=== PATIENT | male | born 1950 ===

== ENCOUNTER 2024-11-12 15:20 | Inpatient (IN) ==
--- NOTE | 2024-11-12 15:52 | Emergency Department Note ---
HPI - SOB/Dyspnea General Chief Complaint: SOB -Shortness of Breath Stated Complaint: SOB Source: patient and family Mode of arrival: walk-in Limitations: no limitations History of Present Illness HPI Narrative: This is a 74 year old male patient that presents to the ER with c/o cough, congestion, fever, chills, SOB and chest tightness. Patient denies any abdominal pain, back pain, numbness, tingling, weakness or N/V MD elicited complaint: Reports shortness of breath, cough and chest pain Pertinent past history: Reports COPD Severity: mild Exacerbating factors: Reports nothing Relieving factors: Reports nothing Known history of: Reports COPD Associated symptoms: Reports chest pain, fever, cough and wheezing Treatment prior to arrival: Reports oxygen Related Data Home oxygen amount: 2 liters Allergies Allergy/AdvReac Type Severity Reaction Status Date / Time No Known Drug Allergies Allergy Verified 11/12/24 15:34 Review of Systems Status of ROS 10 or more systems reviewed and unremark able except as noted in history and below Constitutional Reports: fever and chills; Denies: change in weight, fatigue or malaise Eyes Denies: change in vision, blurry vision, blind spots, light sensitivity or eye discomfort Ears, nose, mouth, and throat Denies: throat pain, neck pain, throat swelling, difficulty swallowing, hoarseness or mouth pain Cardiovascular Reports: chest pain, shortness of breath with exertion and shortness of breath when lying down; Denies: palpitations, edema, swelling of feet/ankles or lightheadedness Respiratory Reports: shortness of breath, cough and wheezing; Denies: stridor, pain on inspiration or change in phlegm color Gastrointestinal Denies: abdominal pain, nausea, vomiting, coffee grounds in vomit, heartburn, diarrhea or constipation Genitourinary Denies: painful urination, urinary frequency, urinary urgency, bl ood in urine or genital pain Musculoskeletal Denies: back pain, neck pain, extremity pain, extremity swelling or joint pain Integumentary/Breast Denies: rash, itching, redness, skin pain, skin tenderness or skin swelling Neurological Denies: headache, numbness in extremities, weakness in extremities, lack of coordination or dizziness Psychiatric Denies: anxiety, mood swings, panic attacks, change in sleep pattern or hopelessness Endocrine Denies: excessive urination, excessive thirst, fatigue, cold intolerance, excessive sweating or flushing Hematologic/Lymphatic Denies: easy bruising or easy bleeding Allergic/Immunologic Denies: hives, throat swelling, tongue swelling, facial swelling or wheezing PFSH PFSH Medical History Chronic neck and back pain CHF (congestive heart failure) A-fib COPD (chronic obstructive pulmonary disease) HTN (hypertension) Social History Smoking status: current every day smoker What is your current living situation: I presently have a place to live Feel stressed/tense/nervous/anxious/difficulty sleeping: to some extent Life stressor details: health Due to disability, difficulty making decisions: No Exam Constitutional: normal general appearance and no apparent distress Vital Signs - 24 hr 11/12/24 15:31 11/12/24 15:59 11/12/24 16:12 Temperature 98.1 F Pulse Rate 82 67 Respiratory Rate 25 H 21 Blood Pressure 127/67 Pulse Oximetry 89 L 96 95 Oxygen Delivery Me thod Nasal Cannula Oxygen Flow Rate 2 HENMT: normocephalic, head/scalp atraumatic, hearing grossly normal bilaterally, external ears normal, nasal mucous membranes normal, external nose normal, oral mucous membranes normal and oropharynx normal Eyes: PERRL, EOMs intact bilaterally, conjunctivae normal and no scleral icterus Neck/C-Spine: visual inspection normal and trachea midline Lymph: no lymphadenopathy noted Chest: inspection of chest normal Respiratory: breath sounds equal bilaterally, normal respiratory effort, auscultation abnormal (diminished breath sound), wheezing noted (scattered wheezes), no rales, no retractions, no use of accessory muscles and chest percussion normal Cardiovascular: normal heart rate noted, rhythm abnormal (irregular), no gallop, no rub, no murmur, no JVD, no clicks, peripheral pulses 2+ throughout, no bruits noted and no additional abnormal heart sounds Gastrointestinal: abdomen normal to inspection, abdomen soft to palpation, nontender to palpation, nontender to percussion, nondistended, normoactive bowel sounds, no hepatosplenomegaly, no masses, no pulsatile mass, no ascites and no hernia Genitourinary: no CVA tenderness Back/Pelvis: spine normal to inspection Extremities: normal to inspection, normal to palpation, no tenderness, full ROM, no joint enlargement and no deformity Neurology: no movement abnormality noted, no focal motor deficit noted, no sensory deficits noted, speech normal, coordination normal, no pronator drift noted, no fasciculations noted and GCS normal Psychiatry: mental status grossly normal, oriented x3, thought process normal, cooperative and affect normal Skin: skin color normal Course Course Hospital Course: 1657: due to patient medical hx, low O2 sats upon arrival to ER, will admit to the hospital for further evaluation and treatment. VSS, no s/s of acute distress noted Vital Signs Vital signs: Vital Signs Temperature 98.1 F 11/12/24 15:31 Pulse Rate 82 11/12/24 15:31 Respiratory Rate 25 H 11/12/24 15:31 Blood Pressure 127/67 11/12/24 15:31 Pulse Oximetry 89 L 11/12/24 15:31 Oxygen Delivery Method Nasal Cannula 11/12/24 15:31 Oxygen Flow Rate 2 11/12/24 15:31 Temperature 98.1 F 11/12/24 15:31 Pulse Rate 67 11/12/24 15:59 Respiratory Rate 21 11/12/24 15:59 Blood Pressure 127/67 11/12/24 15:31 Pulse Oximetry 95 11/12/24 16:12 Oxygen Delivery Method Nasal Cannula 11/12/24 15:31 Oxygen Flow Rate 2 11/12/24 15:31 MDM - SOB/Dyspnea Differential Diagnosis Differential diagnosis: Likely acute exacerbation of chronic obstructive airways disease Medical Records Attestation: I reviewed the patient's medical records. Lab Data Attestation: I reviewed the patient's lab results. Labs: Lab Results 11/12/24 Range/Units 15:48 WBC 11.7 H (3.7-9.6) K/uL RBC 4.4 (4.40-5.80) M/uL Hgb 13.9 L (14.0-17.4) gm/dL Hct 41.0 L (41.3-50.1) % MCV 94.1 (81.9-96.5) fl MCH 31.9 (27.6-33.7) pg MCHC 34.0 (33.0-35.7) g/dl RDW 14.9 H (11.0-14.8) % Plt Count 103 L (142-355) K/uL MPV 7.0 (6.0-10.4) fl Gran % 41.7 L (49.1-73.1) % Lymph % (Auto) 52.4 H (17.6-39.05) % [place] % (Auto) 4.9 (4.5-10.7) % Eos % (Auto) 0.8 (0.0-4.0) % Baso % (Auto) 0.2 (0.0-1.3) Lymph # (Auto) 6.1 H (0.8-2.9) [place] # (Auto) 0.6 (0.2-0.8) Eos # (Auto) 0.1 (0.0-0.3) Baso # (Auto) 0.0 (0.0-0.1) Absolute Gran (auto) 4.9 (2.0-6.2) Sodium 138 (136-145) mmol/L Potassium 4.2 (3.6-5.2) mmol/L Chloride 102.0 (98-107) mmol/L Carbon Dioxide 31 (21-32) mmol/L Anion Gap 5.0 (4-14) mEq/L BUN 13 (7-18) mg/dL Creatinine 1.2 (0.6-1.3) mg/dL Estimated GFR 64.3 (>59.9) Glucose 91 (70-110) mg/dL Lactic Acid 0.4 (0.27-1.43) mmol/L Calcium 8.4 L (8.5-10.1) mg/dL Total Bilirubin 1.07 H (0.0-1.0) mg/dL AST 12 L (15-37) U/L ALT <6 L (30-65) U/L Alkaline Phosphatase 60 (50-136) U/L Troponin I High Sens 6.40 (4.0-60.4) ng/L B-Natriuretic Peptide 74.1 (0-100) pg/mL Total Protein 6.3 L (6.4-8.2) g/dL Albumin 3.7 (3.4-5.0) g/dL COVID-19 (ALISSA) Not detected (Not Detectd) Influenza Type A Ag Negative (Negative) Influenza Type B Ag Negative (Negative) Imaging Data Imaging ordered: Chest x-ray Attestation: I have reviewed the pertinent imaging results. ECG Data Attestation: I have reviewed the pertinent ECG results. Discharge Plan Discharge Patient Disposition: Admitted As Observation Condition: Stable Clinical Impression: Congestive heart failure, Chest pain, COPD exacerbation, Hypoxia Time of Disposition: 17:01
[2024-11-12] MEDS: METHYLPREDNISOLONE SOD SUCC/PF 125 MG/2 ML VIAL IVP ONE (15:53)
[2024-11-12] MEDS ORDERED: IPRATROPIUM BROMIDE 0.2 MG/ML SOLUTION INH ONE (16:00)
[2024-11-12 16:03] LABS: Eosinophils#(Absolute)Auto 0.1 (0.0-0.3); Monocytes #(Absolute)- Auto 0.6 (0.2-0.8)
[2024-11-12] MEDS: IPRATROPIUM/ALBUTEROL SULFATE 3 ML AMPUL.NEB INH ONE (16:12)
[2024-11-12] MEDS: BUDESONIDE 0.5 MG/2 ML AMPUL.NEB INH ONE (16:12)
[2024-11-12 16:13] LABS: Basophils%(Percent) Auto 0.2 (0.0-1.3); Carbon Dioxide 31 mmol/L (21-32); Eosinophils%(Percent) Auto 0.8 % (0.0-4.0); Glucose 91 mg/dL (70-110); Granulocytes % - Auto 41.7 % (49.1-73.1); Granulocytes#(Absolute)- Auto 4.9 (2.0-6.2); Mean Corpuscular Volume 94.1 fl (81.9-96.5); Monocytes %(Percent)- Auto 4.9 % (4.5-10.7); Platelet Count 103 K/uL (142-355); Potassium 4.2 mmol/L (3.6-5.2); Sodium 138 mmol/L (136-145); White Blood Count 11.7 K/uL (3.7-9.6)
[2024-11-12] MEDS ORDERED: FUROSEMIDE 20 MG/2 ML VIAL ONE (18:17)
[2024-11-12] MEDS: FUROSEMIDE 20 MG/2 ML VIAL IV ONE (18:19)
[2024-11-13] MEDS ORDERED: MAGNESIUM, ALUMINUM HYDROXIDE 30 ML ORAL.SUSP PO PRN (02:05)
[2024-11-13] MEDS ORDERED: DOCUSATE SODIUM 100 MG CAPSULE PO PRN (02:05)
[2024-11-13 03:10] LABS: Basophils%(Percent) Auto 0.4 (0.0-1.3); Granulocytes % - Auto 27.6 % (49.1-73.1); Granulocytes#(Absolute)- Auto 4.8 (2.0-6.2); Hematocrit 40.5 % (41.3-50.1); Mean Corpuscular Volume 92.6 fl (81.9-96.5); Monocytes #(Absolute)- Auto 0.2 (0.2-0.8); Monocytes %(Percent)- Auto 1.2 % (4.5-10.7); Platelet Count 110 K/uL (142-355); White Blood Count 17.3 K/uL (3.7-9.6)
[2024-11-13 03:15] LABS: Potassium 4.9 mmol/L (3.6-5.2)
[2024-11-13] MEDS: BUDESONIDE 0.5 MG/2 ML AMPUL.NEB INH SCH (04:50)
[2024-11-13] MEDS: IPRATROPIUM/ALBUTEROL SULFATE 3 ML AMPUL.NEB INH SCH (04:50)
[2024-11-13] MEDS: ACETAMINOPHEN 500 MG TABLET PO PRN (10:17)
[2024-11-13] MEDS: FUROSEMIDE 20 MG/2 ML VIAL IV SCH (10:17)
[2024-11-13] MEDS: PANTOPRAZOLE SODIUM 40 MG TABLET.DR PO SCH (10:17)
[2024-11-13] MEDS: levoFLOXacin 500 MG TABLET PO SCH (10:17)
--- NOTE | 2024-11-13 12:14 | History & Physical Report ---
H&P: HPI History of Present Illness Chief complaint: COPD EXACERBATION,CHF EXACERBATION,CHEST PAIN,HYPO Narrative: This is a 74-year-old male patient that presents to the ER with c/o cough, congestion, fever, chills, SOB and chest tightness. Patient denies any abdominal pain, back pain, numbness, tingling, weakness or N/V. Admitted patient to med/surg for further observation and treatment. Review of Systems Status of ROS 10 or more systems reviewed and unremark able except as noted in history and below Constitutional Reports: fever and chills; Denies: change in weight, fatigue or malaise Eyes Denies: change in vision, blurry vision, blind spots, light sensitivity or eye discomfort Ears, nose, mouth, and throat Denies: throat pain, neck pain, throat swelling, difficulty swallowing, hoarseness or mouth pain Cardiovascular Reports: chest pain, shortness of breath with exertion and shortness of breath when lying down; Denies: palpitations, edema, swelling of feet/ankles or lightheadedness Respiratory Reports: shortness of breath and cough; Denies: wheezing, stridor, pain on inspiration or change in phlegm color Gastrointestinal Denies: abdominal pain, nausea, vomiting, coffee grounds in vomit, heartburn, diarrhea, constipation or difficulty swallowing Genitourinary Denies: painful urination, urinary frequency, urinary urgency, blood in urine or genital pain Musculoskeletal Denies: back pain, neck pain, extremity pain, extremity swelling or joint pain Integumentary/Breast Denies: rash, itching, redness, skin pain, skin tenderness or skin swelling Neurological Denies: headache, numbness in extremities, weakness in extremities, lack of coordination or dizziness Psychiatric Denies: anxiety, mood swings, panic attacks, change in sleep pattern or hopelessness Endocrine Denies: excessive urination, excessive thirst, fatigue, cold intolerance, excessive sweating or flushing Hematologic/Lymphatic Denies: easy bruising or easy bleeding Allergic/Immunologic Denies: hives, throat swelling, tongue swelling, facial swelling or wheezing PFSH PFSH Medical History Chronic neck and back pain CHF (congestive heart failure) A-fib COPD (chronic obstructive pulmonary disease) HTN (hypertension) Social History Smoking status: current every day smoker What is your current living situation: I presently have a place to live Problems where you live: no known problems Highest level of school completed/degree received: decline to answer Feel stressed/tense/nervous/anxious/difficulty sleeping: to some extent Life stressor details: health Due to disability, difficulty making decisions: No Meds Home Medications and Allergies Home Medications Medication Instructions Recorded Confirmed Type aspirin 325 mg tablet (Ralf 325 mg PO DAILY 11/13/24 11/13/24 History Aspirin) carbidopa 25 mg-levodopa 100 mg 1 tab PO TID PRN muscle spasm 11/13/24 11/13/24 History tablet digoxin 250 mcg (0.25 mg) tablet 0.25 mg PO DAILY 11/13/24 11/13/24 History duloxetine 30 mg capsule,delayed 30 mg PO BID 11/13/24 11/13/24 History release furosemide 40 mg tablet 40 mg PO DAILY 11/13/24 11/13/24 History hydrocodone 5 mg-acetaminophen 325 1 tab PO Q8H PRN pain 11/13/24 11/13/24 History mg tablet metoprolol tartrate 50 mg tablet 25 mg PO BID 11/13/24 11/13/24 History potassium chloride 20 mEq 20 meq PO DAILY 11/13/24 11/13/24 History tablet,extended release Allergies Allergy/AdvReac Type Severity Reaction Status Date / Time No Known Drug Allergies Allergy Verified 11/12/24 15:34 Exam Exam: Patient lying on left side resting, family member at bedside. Constitutional: abnormal general appearance (disheveled) and (lethargic), distress noted (mild) and (respiratory), abnormal body habitus (overweight), no limitations and alert Vital Signs - 24 hr 11/12/24 15:31 11/12/24 15:59 11/12/24 16:12 Temperature 98.1 F Pulse Rate 82 67 Pulse Rate [Brachi al] Respiratory Rate 25 H 21 Blood Pressure 127/67 Blood Pressure [Le ft Arm] Pulse Oximetry 89 L 96 95 Oxygen Delivery Me thod Nasal Cannula Oxygen Flow Rate 2 11/12/24 19:00 11/12/24 19:30 11/12/24 20:00 Temperature 98.1 F 98.1 F Pulse Rate 90 82 79 Pulse Rate [Brachi al] Respiratory Rate 21 20 21 Blood Pressure 177/73 131/76 141/69 Blood Pressure [Le ft Arm] Pulse Oximetry 95 95 95 Oxygen Delivery Me thod Nasal Cannula Nasal Cannula Nasal Cannula Oxygen Flow Rate 2 2 2 11/12/24 20:43 11/12/24 20:50 11/12/24 20:55 Temperature 97.8 F Pulse Rate 81 81 Pulse Rate [Brachi al] Respiratory Rate 22 19 Blood Pressure 140/73 108/66 Blood Pressure [Le ft Arm] Pulse Oximetry 95 93 L Oxygen Delivery Me thod Nasal Cannula Room Air Oxygen Flow Rate 2 11/12/24 21:30 11/12/24 21:41 11/13/24 00:18 Temperature 97.8 F 97.7 F Pulse Rate Pulse Rate [Brachi al] 80 69 Respiratory Rate 19 17 Blood Pressure 108/66 Blood Pressure [Le ft Arm] 108/66 101/62 Pulse Oximetry 93 L 95 Oxygen Delivery Me thod Room Air Nasal Cannula Oxygen Flow Rate 2 11/13/24 04:26 11/13/24 04:49 11/13/24 07:30 Temperature 97.4 F L Pulse Rate Pulse Rate [Brachi al] 67 Respiratory Rate 17 Blood Pressure Blood Pressure [Le ft Arm] 127/63 Pulse Oximetry 96 95 91 L Oxygen Delivery Me thod Room Air Oxygen Flow Rate 11/13/24 09:16 11/13/24 10:17 11/13/24 11:14 Temperature 97.8 F Pulse Rate Pulse Rate [Brachi al] 80 Respiratory Rate 21 Blood Pressure 124/58 Blood Pressure [Le ft Arm] 124/58 Pulse Oximetry 91 L 91 L Oxygen Delivery Me thod Nasal Cannula Oxygen Flow Rate 2 HENMT: normocephalic, head/scalp atraumatic, hearing grossly normal bilaterally, external ears normal, nasal mucous membranes normal, external nose normal, oral mucous membranes normal and oropharynx normal Eyes: PERRL, EOMs intact bilaterally, conjunctivae normal, no scleral icterus, papilledema noted and periorbital findings normal Neck/C-Spine: trachea midline, cervical spine nontender, abnormal cervical ROM noted, supple, no meningeal signs, thyroid normal and no carotid bruits Lymph: no lymphadenopathy noted and no lymphedema noted Chest: inspection of chest normal and palpation of chest normal Respiratory: breath sounds equal bilaterally, normal respiratory effort, auscultation abnormal (diminished breath sound), wheezing noted (scattered wheezes), no rales, no retractions, no use of accessory muscles and chest percussion normal Cardiovascular: normal heart rate noted, rhythm abnormal (irregular), no gallop, no rub, no murmur, no JVD, no clicks, peripheral pulses 2+ throughout, no bruits noted and no additional abnormal heart sounds Gastrointestinal: abdomen normal to inspection, abdomen soft to palpation, nontender to palpation, nontender to percussion, nondistended, normoactive bowel sounds, no hepatosplenomegaly, no masses, no pulsatile mass, no ascites and no hernia Genitourinary: no CVA tenderness and bladder normal to palpation Back/Pelvis: spine abnormal to inspection (increased thoracic kyphosis), no thoracic spine tenderness, no lumbar spine tenderness, thoracic spine ROM abnormal, no paraspinal muscle tenderness noted and straight leg raise negative bilaterally Extremities: normal to inspection, normal to palpation, no tenderness, full ROM, no joint enlargement and no deformity 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: 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, no movement abnormality noted, no focal motor deficit noted, sensory deficit noted, deep tendon reflexes 2+ bilaterally, gait abnormality noted (antalgic), speech normal, coordination normal, no pronator drift noted, no fasciculations noted and GCS normal Psychiatry: mental status grossly normal, oriented x3, thought process normal, cooperative, affect abnormality noted (flat), psychomotor abnormality noted (agitated) and memory normal Feel stressed/tense/nervous/anxious/difficulty sleeping: decline to answer Skin: skin color normal, no rash, no lesions, ecchymosis noted, no wounds, no lacerations, skin turgor abnormal, no jaundice, no petechiae, no mottling, nails abnormality noted and no alopecia Assessment and Plan Assessment and Plan (1) COPD exacerbation: Code(s): J44.1 - Chronic obstructive pulmonary disease with (acute) exacerbation (2) Chest pain: Qualifiers: Chest pain type: unspecified Qualified Code(s): R07.9 - Chest pain, unspecified Code(s): R07.9 - Chest pain, unspecified (3) CHF (congestive heart failure): Qualifiers: Heart failure chronicity: unspecified Heart failure type: unspecified Qualified Code(s): I50.9 - Heart failure, unspecified Code(s): I50.9 - Heart failure, unspecified (4) SOB (shortness of breath): Code(s): R06.02 - Shortness of breath (5) Leukocytosis: Qualifiers: Leukocytosis type: unspecified Qualified Code(s): D72.829 - Elevated white blood cell count, unspecified Code(s): D72.829 - Elevated white blood cell count, unspecified (6) Elevated d-dimer: Code(s): R79.89 - Other specified abnormal findings of blood chemistry (7) Hyperglycemia: Code(s): R73.9 - Hyperglycemia, unspecified (8) Hypoproteinemia: Code(s): E77.8 - Other disorders of glycoprotein metabolism Plan Budesonide 1 mg INH BID Furosemide 20 mg IV DAILY Pantoprazole Sodium 40 mg PO DAILY Albuterol Sulfate 3 ml INH Q4H Levofloxacin 750 mg PO Q24H Aspirin 325 mg PO DAILY Digoxin 250 mcg PO DAILY Duloxetine Hcl 30 mg PO BID Metoprolol Tartrate 25 mg PO BID Potassium Chloride 20 meq PO DAILY Acetaminophen 500 mg PO Q6H PRN Docusate Sodium 100 mg PO DAILY PRN Magnesium Hydroxide 30 ml PO DAILY PRN Carbidopa/Levodopa 25/100 mg (1) each PO TID PRN Hydrocodone Bitart/Acetaminophen 5/325 mg (1) each PO Q8H PRN Results Labs Labs: CBC 11/12/24 11/13/24 Range/Units 15:48 03:00 WBC 11.7 H 17.3 H (3.7-9.6) K/uL RBC 4.4 4.4 (4.40-5.80) M/uL Hgb 13.9 L 14.0 (14.0-17.4) gm/dL Hct 41.0 L 40.5 L (41.3-50.1) % Plt Count 103 L 110 L (142-355) K/uL Gran % 41.7 L 27.6 L (49.1-73.1) % Lymph % (Auto) 52.4 H 70.8 H (17.6-39.05) % [place] % (Auto) 4.9 1.2 L (4.5-10.7) % Eos % (Auto) 0.8 0.0 (0.0-4.0) % Baso % (Auto) 0.2 0.4 (0.0-1.3) Lymph # (Auto) 6.1 H 12.3 H (0.8-2.9) [place] # (Auto) 0.6 0.2 (0.2-0.8) Eos # (Auto) 0.1 0.0 (0.0-0.3) Baso # (Auto) 0.0 0.0 (0.0-0.1) Absolute Gran (auto) 4.9 4.8 (2.0-6.2) CMP 11/12/24 11/13/24 15:48 03:00 Sodium 138 140 Potassium 4.2 4.9 Chloride 102.0 103.0 Carbon Dioxide 31 34 H BUN 13 18 Creatinine 1.2 1.3 Glucose 91 162 H Calcium 8.4 L 8.6 Liver Function 11/12/24 Range/Units 15:48 Total Bilirubin 1.07 H (0.0-1.0) mg/dL AST 12 L (15-37) U/L ALT <6 L (30-65) U/L Alkaline Phosphatase 60 (50-136) U/L Albumin 3.7 (3.4-5.0) g/dL Pulse Oximetry Attestation: I have reviewed the pertinent pulse oximetry results. ECG Attestation: I have reviewed the pertinent ECG results. Prior ECG tracings: available for review Imaging Imaging ordered: Chest x-ray and CT scan - chest Radiologist's impression: CHEST Date of Service: 11/12/24 HISTORY: painpain; COMPARISON: March 31, 2024. TECHNIQUE: Frontal view of the chest was submitted for interpretation. FINDINGS: The cardiomediastinal silhouette is again seen to be enlarged. Lungs show mild pulmonary edema. IMPRESSION: Stable cardiomegaly with mild pulmonary edema. CT CHEST WO CON Date of Service: 11/12/24 HISTORY: Shortness of breath. Assess for mass. COMPARISON: Chest radiograph from November 12, 2024 and CTA chest from March 31, 2024 TECHNIQUE: Axial non-contrast images of the chest with coronal and sagittal reformats. Radiation dose: 381.7 mGy-cm total DLP FINDINGS: No pericardial effusion. Coronary artery calcifications. Cardiac chambers are moderately enlarged. Aorta and pulmonary arteries are normal in caliber. Numerous slightly enlarged hilar and mediastinal lymph nodes; without significant change. Thyroid appears normal. Central airways are widely patent. Esophagus appears normal. Pleural thickening and calcifications along the posterior margins of both lungs. No effusion, focal consolidation or pneumothorax. No focal concerning lung parenchymal lesion identified. Scarring in the posterior left lung base and in the middle lobe; as seen on the previous exam. No acute osseous abnormality. IMPRESSION: 1. No acute intrathoracic abnormality identified. No significant changes in the appearance of the lung parenchyma/scarring when compared to the previous exam. 2. Numerous slightly enlarged hilar and mediastinal lymph nodes; without significant change when compared to the CT from March 31, 2024.
[2024-11-13 12:55] LABS: Basophils%(Percent) Auto 0.2 (0.0-1.3); Eosinophils%(Percent) Auto 0.2 % (0.0-4.0); Granulocytes % - Auto 46.7 % (49.1-73.1); Granulocytes#(Absolute)- Auto 6.3 (2.0-6.2); Hematocrit 38.9 % (41.3-50.1); Monocytes #(Absolute)- Auto 0.6 (0.2-0.8); Monocytes %(Percent)- Auto 4.4 % (4.5-10.7); Platelet Count 97 K/uL (142-355); White Blood Count 13.5 K/uL (3.7-9.6)
[2024-11-13] MEDS: HYDROCODONE/ACETAMINOPHEN 5/325 MG TABLET PO PRN (13:20)
[2024-11-13] MEDS: POTASSIUM CHLORIDE 20 MEQ TAB.ER.PRT PO SCH (13:21)
[2024-11-13] MEDS: DIGOXIN 125 MCG TABLET PO SCH (13:21)
[2024-11-13] MEDS: ASPIRIN 325 MG TABLET PO SCH (13:21)
[2024-11-13] MEDS: ENOXAPARIN SODIUM 40 MG/0.4 ML SYRINGE SUBQ SCH (18:05)
[2024-11-13] MEDS: CARBIDOPA/LEVODOPA 25/100 TABLET PO PRN (18:05)
[2024-11-13] MEDS: METOPROLOL TARTRATE 50 MG TABLET PO SCH (22:05)
[2024-11-13] MEDS: DULOXETINE HCL 30 MG CAPSULE.DR PO SCH (22:09)
[2024-11-14 06:20] LABS: Basophils%(Percent) Auto 0.2 (0.0-1.3); Eosinophils#(Absolute)Auto 0.1 (0.0-0.3); Eosinophils%(Percent) Auto 0.5 % (0.0-4.0); Granulocytes % - Auto 32.2 % (49.1-73.1); Granulocytes#(Absolute)- Auto 3.6 (2.0-6.2); Mean Corpuscular Volume 94.5 fl (81.9-96.5); Monocytes #(Absolute)- Auto 0.4 (0.2-0.8); Monocytes %(Percent)- Auto 3.6 % (4.5-10.7); Platelet Count 90 K/uL (142-355); White Blood Count 11.1 K/uL (3.7-9.6)
[2024-11-14] MEDS: HYDROCODONE/CHLORPHEN P-STIREX 5 ML SUS.ER.12H PO PRN (12:49)
[2024-11-14] MEDS: METHYLPREDNISOLONE SOD SUCC/PF 125 MG/2 ML VIAL IVP SCH (12:49)
--- NOTE | 2024-11-14 17:37 | Progress Note ---
Progress Note: Subjective Subjective Interval history: Patient states that his breathing is better he just does not feel well cannot give me any specifics other than he did not rest well last p.m. and cough is worsening so his chest is sore hurts to take deep breaths and cough. Denies any fevers chills is able to take a bath with assistance and will try to get up out of bed several times a day Exam Exam: Patient setting up in recliner chair, family member at couch. Constitutional: normal general appearance, distress noted (mild) and (respiratory), abnormal body habitus (overweight), no limitations and alert Vital Signs - 24 hr 11/13/24 20:48 11/13/24 20:48 11/13/24 22:05 Temperature Pulse Rate 81 Pulse Rate [Brachi al] Respiratory Rate Blood Pressure 116/55 Blood Pressure [Le ft Arm] Pulse Oximetry 96 96 Oxygen Delivery Me thod Nasal Cannula Oxygen Flow Rate 1 11/14/24 07:18 11/14/24 09:06 11/14/24 09:07 Temperature Pulse Rate 76 61 Pulse Rate [Brachi al] Respiratory Rate Blood Pressure 124/61 124/61 Blood Pressure [Le ft Arm] Pulse Oximetry 93 L Oxygen Delivery Me thod Oxygen Flow Rate 11/14/24 11:09 11/14/24 11:50 11/14/24 15:10 Temperature 98.1 F Pulse Rate Pulse Rate [Brachi al] 74 Respiratory Rate 17 Blood Pressure Blood Pressure [Le ft Arm] 102/55 Pulse Oximetry 91 L 91 L 92 L Oxygen Delivery Me thod Nasal Cannula Oxygen Flow Rate 2 11/14/24 16:06 Temperature 98.5 F Pulse Rate Pulse Rate [Brachi al] 76 Respiratory Rate 17 Blood Pressure Blood Pressure [Le ft Arm] 117/59 Pulse Oximetry 94 L Oxygen Delivery Me thod Room Air Oxygen Flow Rate 2 HENMT: normocephalic, head/scalp atraumatic, hearing grossly normal bilaterally, external ears normal, nasal mucous membranes normal, external nose normal, oral mucous membranes normal and oropharynx normal Eyes: PERRL, EOMs intact bilaterally, conjunctivae normal, no scleral icterus, papilledema noted and periorbital findings normal Neck/C-Spine: trachea midline, cervical spine nontender, abnormal cervical ROM noted, supple, no meningeal signs, thyroid normal and no carotid bruits Lymph: no lymphadenopathy noted and no lymphedema noted Chest: inspection of chest normal and palpation of chest normal Respiratory: breath sounds equal bilaterally, normal respiratory effort, auscultation abnormal (diminished breath sound), wheezing noted (scattered wheezes) (improved air movement today), no rales, no retractions, no use of accessory muscles and chest percussion normal Cardiovascular: normal heart rate noted, rhythm abnormal (irregular), no gallop, no rub, no murmur, no JVD, no clicks, peripheral pulses 2+ throughout, no bruits noted and no additional abnormal heart sounds Gastrointestinal: abdomen normal to inspection, abdomen soft to palpation, nontender to palpation, nontender to percussion, nondistended, normoactive bowel sounds, no hepatosplenomegaly, no masses, no pulsatile mass, no ascites and no hernia Genitourinary: no CVA tenderness and bladder normal to palpation Back/Pelvis: spine abnormal to inspection (increased thoracic kyphosis), no thoracic spine tenderness, no lumbar spine tenderness, thoracic spine ROM abnormal, no paraspinal muscle tenderness noted and straight leg raise negative bilaterally Extremities: normal to inspection, normal to palpation, no tenderness, full ROM, no joint enlargement and no deformity 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: 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 intact, no movement abnormality noted, no focal motor deficit noted, sensory deficit noted, deep tendon reflexes 2+ bilaterally, gait abnormality noted (antalgic), speech normal, coordination normal, no pronator drift noted, no fasciculations noted and GCS normal Psychiatry: mental status grossly normal, oriented x3, thought process normal, cooperative, affect abnormality noted (flat), psychomotor abnormality noted (agitated) and memory normal Feel stressed/tense/nervous/anxious/difficulty sleeping: decline to answer Skin: skin color normal, no rash, no lesions, ecchymosis noted, no wounds, no lacerations, skin turgor abnormal, no jaundice, no petechiae, no mottling, nails abnormality noted and no alopecia Progress Note: Objective Labs Labs: CBC 11/14/24 Range/Units 05:30 WBC 11.1 H (3.7-9.6) K/uL RBC 3.9 L (4.40-5.80) M/uL Hgb 12.7 L (14.0-17.4) gm/dL Hct 37.0 L (41.3-50.1) % Plt Count 90 L (142-355) K/uL Gran % 32.2 L (49.1-73.1) % Lymph % (Auto) 63.5 H (17.6-39.05) % [place] % (Auto) 3.6 L (4.5-10.7) % Eos % (Auto) 0.5 (0.0-4.0) % Baso % (Auto) 0.2 (0.0-1.3) Lymph # (Auto) 7.1 H (0.8-2.9) [place] # (Auto) 0.4 (0.2-0.8) Eos # (Auto) 0.1 (0.0-0.3) Baso # (Auto) 0.0 (0.0-0.1) Absolute Gran (auto) 3.6 (2.0-6.2) CMP 11/14/24 05:30 Sodium 140 Potassium 4.0 Chloride 105.0 Carbon Dioxide 33 H BUN 18 Creatinine 1.3 Glucose 112 H Calcium 8.2 L Liver Function 11/14/24 Range/Units 05:30 Total Bilirubin 0.40 (0.0-1.0) mg/dL AST 8 L (15-37) U/L ALT 10 L (30-65) U/L Alkaline Phosphatase 52 (50-136) U/L Albumin 3.1 L (3.4-5.0) g/dL Progress Note: A&P Assessment and Plan (1) COPD exacerbation: (2) Chest pain: Qualifiers: Chest pain type: unspecified Qualified Code(s): R07.9 - Chest pain, unspecified (3) CHF (congestive heart failure): Qualifiers: Heart failure chronicity: unspecified Heart failure type: unspecified Qualified Code(s): I50.9 - Heart failure, unspecified (4) SOB (shortness of breath): (5) Leukocytosis: Qualifiers: Leukocytosis type: unspecified Qualified Code(s): D72.829 - Elevated white blood cell count, unspecified (6) Elevated d-dimer: (7) Hyperglycemia: (8) Hypoproteinemia: Plan Budesonide 1 mg INH BID Furosemide 20 mg IV DAILY held Pantoprazole Sodium 40 mg PO DAILY Albuterol Sulfate 3 ml INH Q4H Levofloxacin 750 mg PO Q24H Aspirin 325 mg PO DAILY Digoxin 250 mcg PO DAILY Duloxetine Hcl 30 mg PO BID Metoprolol Tartrate 25 mg PO BID Potassium Chloride 20 meq PO DAILY DuoNebs every 4 hours Solu-Medrol 125 IV every 8 hours Tussionex 5 mL every 12 hours. Cough Tessalon 200 mg 1 p.o. every 8 hours as needed cough up out of bed at least 3 times today and move around Acetaminophen 500 mg PO Q6H PRN Docusate Sodium 100 mg PO DAILY PRN Magnesium Hydroxide 30 ml PO DAILY PRN Carbidopa/Levodopa 25/100 mg (1) each PO TID PRN Hydrocodone Bitart/Acetaminophen 5/325 mg (1) each PO Q8H PRN Fall Risk Details Pa Fall Scale Risk Level: Low Fall Risk Current Medications: Current Medications Acetaminophen (Acetaminophen 500 Mg Tablet) 500 mg PO Q6H PRN PRN Reason: MILD PAIN SCALE 1-4 Last Admin: 11/13/24 10:17 Dose: 500 mg Hydrocodone Bitart/Acetaminophen (Hydrocodone/Acetaminophen 5/325 Mg Tablet) 1 each PO Q8H PRN PRN Reason: SEVERE PAIN 8-10 Last Admin: 11/14/24 09:06 Dose: 1 each Albuterol Sulfate (Ipratropium/Albuterol Sulfate 3 Ml Ampul.Neb) 3 ml INH Q4H AJ Last Admin: 11/14/24 15:09 Dose: 3 ml Aspirin (Aspirin 325 Mg Tablet) 325 mg PO BID AJ Benzonatate (Benzonatate 100 Mg Capsule) 200 mg PO Q8H PRN PRN Reason: Cough Budesonide (Budesonide 0.5 Mg/2 Ml Ampul.Neb) 1 mg INH BID [facility] Last Admin: 11/14/24 07:18 Dose: 1 mg Carbidopa/Levodopa (Carbidopa/Levodopa 25/100 Tablet) 1 each PO TID PRN PRN Reason: muscle spasm Last Admin: 11/14/24 16:00 Dose: 1 each Chlorphenir/Hydrocodone Polistirex (Hydrocodone/Chlorphen P-Stirex 5 Ml Madhuri.Er.12h) 5 ml PO Q12H PRN PRN Reason: Cough Last Admin: 11/14/24 12:49 Dose: 5 ml Digoxin (Digoxin 125 Mcg Tablet) 250 mcg PO DAILY AJ Last Admin: 11/14/24 09:07 Dose: 250 mcg Docusate Sodium (Docusate Sodium 100 Mg Capsule) 100 mg PO DAILY PRN PRN Reason: Constipation Duloxetine HCl (Duloxetine Hcl 30 Mg Capsule.Dr) 30 mg PO BID [facility] Last Admin: 11/14/24 09:06 Dose: 30 mg Levofloxacin (Levofloxacin 500 Mg Tablet) 750 mg PO Q24H [facility] Last Admin: 11/14/24 12:48 Dose: 750 mg Magnesium Hydroxide (Magnesium, Aluminum Hydroxide 30 Ml Oral.Susp) 30 ml PO DAILY PRN PRN Reason: gerd Methylprednisolone Sodium Succinate (Methylprednisolone Sod Succ/Pf 125 Mg/2 Ml Vial) 125 mg IVP Q8H [facility] Last Admin: 11/14/24 12:49 Dose: 125 mg Metoprolol Tartrate (Metoprolol Tartrate 50 Mg Tablet) 25 mg PO BID [facility] Last Admin: 11/14/24 09:06 Dose: 25 mg Pantoprazole Sodium (Pantoprazole Sodium 40 Mg Tablet.Dr) 40 mg PO DAILY [facility] Last Admin: 11/14/24 09:06 Dose: 40 mg Potassium Chloride (Potassium Chloride 20 Meq Tab.Er.Prt) 20 meq PO DAILY [facility] Last Admin: 11/14/24 09:06 Dose: 20 meq Time Spent With Patient Time: Total time spent is greater than 50% in coordination of care (as documented) at patient's floor/unit and/or counseling patient:
[2024-11-14 18:15] LABS: Urine Appearance CLEAR (CLEAR); Urine Blood 3+ (NEG - TRACE); Urine Color YELLOW (STRAW/YELL.); Urine Urobilinogen Normal (NORMAL)
[2024-11-14 18:16] LABS: Urine Amorphous Sediment Few (Negative); Urine Yeast Negative (Negative)
[2024-11-14] MEDS: ASPIRIN 325 MG TABLET PO SCH (20:02)
[2024-11-15 05:32] LABS: Carbon Dioxide 30 mmol/L (21-32); Glucose 201 mg/dL (70-110); Sodium 136 mmol/L (136-145)
[2024-11-15 07:01] LABS: Basophils%(Percent) Auto 0.1 (0.0-1.3); Hematocrit 39.2 % (41.3-50.1)
[2024-11-15 07:03] LABS: Granulocytes % - Auto 32.3 % (49.1-73.1); Granulocytes#(Absolute)- Auto 6.6 (2.0-6.2); Mean Corpuscular Volume 94.3 fl (81.9-96.5); Monocytes #(Absolute)- Auto 0.3 (0.2-0.8); Monocytes %(Percent)- Auto 1.5 % (4.5-10.7); Platelet Count 100 K/uL (142-355)
[2024-11-15 07:13] LABS: White Blood Count 20.5 K/uL (3.7-9.6)
[2024-11-15] MEDS: BENZONATATE 100 MG CAPSULE PO PRN (09:30)
--- NOTE | 2024-11-15 13:12 | Progress Note ---
Progress Note: Subjective Subjective Interval history: Patient states that his breathing is better and he feels so much better. Cough still persisting although medications help and he has abdominal pain like sore with cough. Denies any fevers chills is able to take a bath with assistance and will try to get up out of bed several times a day. 3 BM's yesterday Exam Exam: Patient setting up in recliner chair, family member at couch. Constitutional: normal general appearance, distress noted (mild) and (respiratory), abnormal body habitus (overweight), no limitations and alert Vital Signs - 24 hr 11/14/24 15:10 11/14/24 16:06 11/14/24 20:00 Temperature 98.5 F 98.3 F Pulse Rate Pulse Rate [Brachi al] 76 77 Respiratory Rate 17 21 Blood Pressure Blood Pressure [Le ft Arm] 117/59 125/62 Pulse Oximetry 92 L 94 L Oxygen Delivery Me thod Room Air Room Air Nasal [place] n[place] Oxygen Flow Rate 2 2 11/14/24 20:02 11/14/24 20:48 11/14/24 20:48 Temperature Pulse Rate 77 Pulse Rate [Brachi al] Respiratory Rate Blood Pressure 125/62 Blood Pressure [Le ft Arm] Pulse Oximetry 96 96 Oxygen Delivery Me thod Nasal Cannula Oxygen Flow Rate 2 11/15/24 00:00 11/15/24 03:56 11/15/24 07:13 Temperature 98.8 F 97.7 F Pulse Rate Pulse Rate [Brachi al] 81 78 Respiratory Rate 22 23 Blood Pressure Blood Pressure [Le ft Arm] 120/60 119/67 Pulse Oximetry 95 92 L Oxygen Delivery Me thod Room Air Nasal [place] Nasal Cannula Oxygen Flow Rate 2 2 11/15/24 07:47 11/15/24 09:10 11/15/24 09:11 Temperature 97.9 F Pulse Rate 102 H 102 H Pulse Rate [Brachi al] 102 H Respiratory Rate 17 Blood Pressure 128/58 128/58 Blood Pressure [Le ft Arm] 128/58 Pulse Oximetry 90 L Oxygen Delivery Me thod Nasal Cannula Oxygen Flow Rate 2 11/15/24 11:14 11/15/24 11:37 Temperature 97.8 F Pulse Rate Pulse Rate [Brachi al] 71 Respiratory Rate 19 Blood Pressure Blood Pressure [Le ft Arm] 107/69 Pulse Oximetry 92 L 92 L Oxygen Delivery Me thod Nasal Cannula Oxygen Flow Rate 2 HENMT: normocephalic, head/scalp atraumatic, hearing grossly normal bilaterall y, external ears normal, nasal mucous membranes normal, external nose normal, oral mucous membranes normal and oropharynx normal Eyes: PERRL, EOMs intact bilaterally, conjunctivae normal, no scleral icterus, papilledema noted and periorbital findings normal Neck/C-Spine: trachea midline, cervical spine nontender, abnormal cervical ROM noted, supple, no meningeal signs, thyroid normal and no carotid bruits Lymph: no lymphadenopathy noted and no lymphedema noted Chest: inspection of chest normal and palpation of chest normal Respiratory: breath sounds equal bilaterally, normal respiratory effort, auscultation abnormal (diminished breath sound), wheezing noted (scattered wheezes) (improved air movement today), no rales, no retractions, no use of accessory muscles and chest percussion normal Cardiovascular: normal heart rate noted, rhythm abnormal (irregular), no gallop, no rub, no murmur, no JVD, no clicks, peripheral pulses 2+ throughout, no bruits noted and no additional abnormal heart sounds Gastrointestinal: abdomen normal to inspection, abdomen soft to palpation, tender to palpation (with palpation or cough rates at a 6 and improves without palpation or coug) (moderate), nontender to percussion, nondistended, normoactive bowel sounds, hepatosplenomegaly noted, no masses, no pulsatile mass, no ascites and no hernia Genitourinary: no CVA tenderness and bladder normal to palpation Back/Pelvis: spine abnormal to inspection (increased thoracic kyphosis), no thoracic spine tenderness, no lumbar spine tenderness, thoracic spine ROM abnormal, no paraspinal muscle tenderness noted and straight leg raise negative bilaterally Extremities: normal to inspection, normal to palpation, no tenderness, full ROM, no joint enlargement and no deformity Neurology: dropper tank storage II-XII intact, no movement abnormality noted, no focal motor deficit noted, sensory deficit noted, deep tendon reflexes 2+ bilaterally, gait abnormality noted (antalgic), speech normal, coordination normal, no pronator drift noted, no fasciculations noted and GCS normal Psychiatry: mental status grossly normal, oriented x3, thought process normal, cooperative, affect abnormality noted (flat), psychomotor abnormality noted (agitated) and memory normal Feel stressed/tense/nervous/anxious/difficulty sleeping: decline to answer Skin: skin color normal, no rash, no lesions, ecchymosis noted, no wounds, no lacerations, skin turgor abnormal, no jaundice, no petechiae, no mottling, nails abnormality noted and no alopecia Progress Note: Objective Labs Labs: CBC 11/15/24 Range/Units 05:50 WBC 20.5 H* D (3.7-9.6) K/uL RBC 4.2 L (4.40-5.80) M/uL Hgb 13.4 L (14.0-17.4) gm/dL Hct 39.2 L (41.3-50.1) % Plt Count 100 L (142-355) K/uL Gran % 32.3 L (49.1-73.1) % Lymph % (Auto) 66.1 H (17.6-39.05) % [place] % (Auto) 1.5 L (4.5-10.7) % Eos % (Auto) 0.0 (0.0-4.0) % Baso % (Auto) 0.1 (0.0-1.3) Lymph # (Auto) 13.5 H (0.8-2.9) [place] # (Auto) 0.3 (0.2-0.8) Eos # (Auto) 0.0 (0.0-0.3) Baso # (Auto) 0.0 (0.0-0.1) Absolute Gran (auto) 6.6 H (2.0-6.2) CMP 11/15/24 04:55 Sodium 136 Potassium 5.0 Chloride 102.0 Carbon Dioxide 30 BUN 19 H Creatinine 1.3 Glucose 201 H Calcium 8.0 L Liver Function 11/15/24 Range/Units 04:55 Total Bilirubin 0.33 (0.0-1.0) mg/dL AST 10 L (15-37) U/L ALT <6 L (30-65) U/L Alkaline Phosphatase 65 (50-136) U/L Albumin 3.6 (3.4-5.0) g/dL Urine 11/14/24 17:53 Urine Color Yellow Urine Appearance Clear Ur Specific [place] 1.020 Urine Protein Negative Urine Glucose (UA) Normal Progress Note: A&P Assessment and Plan (1) COPD exacerbation: (2) Pneumonia allergic: (3) Chest pain: Qualifiers: Chest pain type: unspecified Qualified Code(s): R07.9 - Chest pain, unspecified (4) CHF (congestive heart failure): Qualifiers: Heart failure type: unspecified Heart failure chronicity: unspecified Qualified Code(s): I50.9 - Heart failure, unspecified (5) SOB (shortness of breath): (6) Leukocytosis: Qualifiers: Leukocytosis type: unspecified Qualified Code(s): D72.829 - Elevated white blood cell count, unspecified (7) Elevated d-dimer: (8) Hyperglycemia: (9) Hypoproteinemia: Plan 0.9% NS at 100 ml per hour x 1 liter Budesonide 1 mg INH BID Furosemide 20 mg IV DAILY held Pantoprazole Sodium 40 mg PO DAILY Albuterol Sulfate 3 ml INH Q4H Levofloxacin 750 mg PO Q24H Aspirin 325 mg PO DAILY Digoxin 250 mcg PO DAILY Duloxetine Hcl 30 mg PO BID Metoprolol Tartrate 25 mg PO BID Potassium Chloride 20 meq PO DAILY DuoNebs every 4 hours Solu-Medrol 125 IV every 8 hours Tussionex 5 mL every 12 hours. Cough Tessalon 200 mg 1 p.o. every 8 hours as needed cough up out of bed at least 3 times today and move around Acetaminophen 500 mg PO Q6H PRN Docusate Sodium 100 mg PO DAILY PRN Magnesium Hydroxide 30 ml PO DAILY PRN Carbidopa/Levodopa 25/100 mg (1) each PO TID PRN Hydrocodone Bitart/Acetaminophen 5/325 mg (1) each PO Q8H PRN Fall Risk Details Pa Fall Scale Risk Level: Low Fall Risk Current Medications: Current Medications Acetaminophen (Acetaminophen 500 Mg Tablet) 500 mg PO Q6H PRN PRN Reason: MILD PAIN SCALE 1-4 Last Admin: 11/13/24 10:17 Dose: 500 mg Hydrocodone Bitart/Acetaminophen (Hydrocodone/Acetaminophen 5/325 Mg Tablet) 1 each PO Q8H PRN PRN Reason: SEVERE PAIN 8-10 Last Admin: 11/15/24 09:10 Dose: 1 each Albuterol Sulfate (Ipratropium/Albuterol Sulfate 3 Ml Ampul.Neb) 3 ml INH Q4H AJ Last Admin: 11/15/24 11:14 Dose: 3 ml Aspirin (Aspirin 325 Mg Tablet) 325 mg PO BID AJ Last Admin: 11/15/24 09:10 Dose: 325 mg Benzonatate (Benzonatate 100 Mg Capsule) 200 mg PO Q8H PRN PRN Reason: Cough Last Admin: 11/15/24 09:30 Dose: 200 mg Budesonide (Budesonide 0.5 Mg/2 Ml Ampul.Neb) 1 mg INH BID [facility] Last Admin: 11/15/24 07:13 Dose: 1 mg Carbidopa/Levodopa (Carbidopa/Levodopa 25/100 Tablet) 1 each PO TID PRN PRN Reason: muscle spasm Last Admin: 11/15/24 09:10 Dose: 1 each Chlorphenir/Hydrocodone Polistirex (Hydrocodone/Chlorphen P-Stirex 5 Ml Madhuri.Er.12h) 5 ml PO Q12H PRN PRN Reason: Cough Last Admin: 11/15/24 10:58 Dose: 5 ml Digoxin (Digoxin 125 Mcg Tablet) 250 mcg PO DAILY [facility] Last Admin: 11/15/24 09:10 Dose: 250 mcg Docusate Sodium (Docusate Sodium 100 Mg Capsule) 100 mg PO DAILY PRN PRN Reason: Constipation Duloxetine HCl (Duloxetine Hcl 30 Mg Capsule.Dr) 30 mg PO BID [facility] Last Admin: 11/15/24 09:10 Dose: 30 mg Levofloxacin (Levofloxacin 500 Mg Tablet) 750 mg PO Q24H [facility] Last Admin: 11/15/24 10:50 Dose: 750 mg Magnesium Hydroxide (Magnesium, Aluminum Hydroxide 30 Ml Oral.Susp) 30 ml PO DAILY PRN PRN Reason: gerd Metoprolol Tartrate (Metoprolol Tartrate 50 Mg Tablet) 25 mg PO BID [facility] Last Admin: 11/15/24 09:11 Dose: 25 mg Pantoprazole Sodium (Pantoprazole Sodium 40 Mg Tablet.) 40 mg PO DAILY [facility] Last Admin: 11/15/24 09:08 Dose: 40 mg Potassium Chloride (Potassium Chloride 20 Meq Tab.Er.Prt) 20 meq PO DAILY [facility] Last Admin: 11/15/24 09:10 Dose: 20 meq Time Spent With Patient Time: Total time spent is greater than 50% in coordination of care (as documented) at patient's floor/unit and/or counseling patient:
[2024-11-16 05:31] LABS: Basophils #(Absolute) Auto 0.1 (0.0-0.1); Basophils%(Percent) Auto 0.4 (0.0-1.3); Eosinophils%(Percent) Auto 0.1 % (0.0-4.0); Granulocytes % - Auto 30.6 % (49.1-73.1); Granulocytes#(Absolute)- Auto 5.7 (2.0-6.2); Hematocrit 37.2 % (41.3-50.1); Mean Corpuscular Volume 94.7 fl (81.9-96.5); Monocytes #(Absolute)- Auto 0.6 (0.2-0.8); Monocytes %(Percent)- Auto 3.2 % (4.5-10.7); Platelet Count 109 K/uL (142-355); White Blood Count 18.7 K/uL (3.7-9.6)
[2024-11-16 05:47] LABS: Carbon Dioxide 31 mmol/L (21-32); Glucose 130 mg/dL (70-110); Potassium 4.5 mmol/L (3.6-5.2); Sodium 140 mmol/L (136-145)
--- NOTE | 2024-11-16 16:29 | Progress Note ---
Progress Note: Subjective Subjective Interval history: Patient states that his breathing is harder since this am and he is struggling to breath today. Cough still persisting although medications help and he has abdominal pain like sore with coughing continues today. Denies any fevers chills is able to take a bath with assistance and will try to get up out of bed several times a day. Exam Exam: Patient setting up in recliner chair, family member at couch. Constitutional: normal general appearance, distress noted (mild) and (respiratory), abnormal body habitus (overweight), limitations noted (physical limitations) and alert Vital Signs - 24 hr 11/15/24 19:44 11/15/24 20:39 11/15/24 20:50 Temperature 98.1 F Pulse Rate 84 Pulse Rate [Brachi al] 84 Respiratory Rate 23 Blood Pressure 117/60 Blood Pressure [Le ft Arm] 117/60 Pulse Oximetry 95 Oxygen Delivery Me thod Nasal Cannula Oxygen Flow Rate 2 11/15/24 20:50 11/16/24 00:00 11/16/24 04:00 Temperature 97.7 F Pulse Rate Pulse Rate [Brachi al] 86 74 Respiratory Rate 20 20 Blood Pressure Blood Pressure [Le ft Arm] 116/66 119/64 Pulse Oximetry 95 97 100 Oxygen Delivery Me thod Nasal Cannula Nasal Cannula Nasal Cannula Oxygen Flow Rate 2 2 2 11/16/24 07:59 11/16/24 08:09 11/16/24 12:00 Temperature 97.8 F 98.3 F Pulse Rate Pulse Rate [Brachi al] 75 72 Respiratory Rate 19 20 Blood Pressure Blood Pressure [Le ft Arm] 115/66 120/57 Pulse Oximetry 91 L 98 93 L Oxygen Delivery Me thod Nasal Cannula Nasal Cannula Oxygen Flow Rate 2 2 HENMT: normocephalic, head/scalp atraumatic, hearing grossly normal bilaterally, external ears normal, nasal mucous membranes normal, external nose normal, oral mucous membranes normal and oropharynx normal Eyes: PERRL, EOMs intact bilaterally, conjunctivae normal, no scleral icterus, papilledema noted and periorbital findings normal Neck/C-Spine: trachea midline, cervical spine nontender, abnormal cervical ROM noted, supple, no meningeal signs, thyroid normal and no carotid bruits Lymph: no lymphadenopathy noted and no lymphedema noted Chest: inspection of chest normal and palpation of chest normal Respiratory: breath sounds equal bilaterally, normal respiratory effort, auscultation abnormal (diminished breath sound), wheezing noted (scattered wheezes) (tighter today), no rales, no retractions, use of accessory muscles noted and chest percussion normal Cardiovascular: normal heart rate noted, rhythm abnormal (irregular), no gallop, no rub, no murmur, no JVD, no clicks, peripheral pulses 2+ throughout, no bruits noted and no additional abnormal heart sounds Gastrointestinal: abdomen normal to inspection, abdomen soft to palpation, tender to palpation (with palpation or cough rates at a 6 and improves without palpation or coug) (moderate), nontender to percussion, nondistended, normoactive bowel sounds, hepatosplenomegaly noted, no masses, no pulsatile mass, no ascites and no hernia Genitourinary: no CVA tenderness and bladder normal to palpation Back/Pelvis: spine abnormal to inspection (increased thoracic kyphosis), no thoracic spine tenderness, no lumbar spine tenderness, thoracic spine ROM abnormal, no paraspinal muscle tenderness noted and straight leg raise negative bilaterally Extremities: normal to inspection, normal to palpation, no tenderness, full ROM, no joint enlargement and no deformity 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: 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 intact, no movement abnormality noted, no focal motor deficit noted, sensory deficit noted, deep tendon reflexes 2+ bilaterally, gait abnormality noted (antalgic), speech normal, coordination normal, no pronator drift noted, no fasciculations noted and GCS normal Psychiatry: Mental Status Exam documented within this Exam's Psych section mental status grossly normal, oriented x3, thought process normal, cooperative, affect abnormality noted (flat), psychomotor abnormality noted (agitated) and memory normal Feel stressed/tense/nervous/anxious/difficulty sleeping: decline to answer Skin: skin color normal, no rash, no lesions, ecchymosis noted, no wounds, no lacerations, skin turgor abnormal, no jaundice, no petechiae, no mottling, nails abnormality noted and no alopecia Progress Note: Objective Labs Labs: CBC 11/16/24 Range/Units 05:10 WBC 18.7 H (3.7-9.6) K/uL RBC 3.9 L (4.40-5.80) M/uL Hgb 12.6 L (14.0-17.4) gm/dL Hct 37.2 L (41.3-50.1) % Plt Count 109 L (142-355) K/uL Gran % 30.6 L (49.1-73.1) % Lymph % (Auto) 65.7 H (17.6-39.05) % [place] % (Auto) 3.2 L (4.5-10.7) % Eos % (Auto) 0.1 (0.0-4.0) % Baso % (Auto) 0.4 (0.0-1.3) Lymph # (Auto) 12.3 H (0.8-2.9) [place] # (Auto) 0.6 (0.2-0.8) Eos # (Auto) 0.0 (0.0-0.3) Baso # (Auto) 0.1 (0.0-0.1) Absolute Gran (auto) 5.7 (2.0-6.2) CMP 11/16/24 05:10 Sodium 140 Potassium 4.5 Chloride 106.0 Carbon Dioxide 31 BUN 25 H Creatinine 1.3 Glucose 130 H Calcium 7.9 L Liver Function 11/16/24 Range/Units 05:10 Total Bilirubin 0.29 (0.0-1.0) mg/dL AST 8 L (15-37) U/L ALT <6 L (30-65) U/L Alkaline Phosphatase 51 (50-136) U/L Albumin 3.1 L (3.4-5.0) g/dL Urine 11/14/24 17:53 Urine Color Yellow Urine Appearance Clear Ur Specific [place] 1.020 Urine Protein Negative Urine Glucose (UA) Normal Pulse Oximetry Attestation: I have reviewed the pertinent pulse oximetry results. Progress Note: A&P Assessment and Plan (1) Bronchospasm, acute: (2) COPD exacerbation: (3) Thrombocytopenia: (4) A-fib: Qualifiers: Atrial fibrillation type: paroxysmal Qualified Code(s): I48.0 - Paroxysmal atrial fibrillation (5) Pneumonia allergic: (6) Hyperglycemia: (7) Chest pain: Qualifiers: Chest pain type: unspecified Qualified Code(s): R07.9 - Chest pain, unspecified (8) CHF (congestive heart failure): Qualifiers: Heart failure chronicity: unspecified Heart failure type: unspecified Qualified Code(s): I50.9 - Heart failure, unspecified (9) SOB (shortness of breath): (10) Leukocytosis: Assessment and Plan: improved Qualifiers: Leukocytosis type: unspecified Qualified Code(s): D72.829 - Elevated white blood cell count, unspecified (11) Elevated d-dimer: (12) Hypoproteinemia: (13) Anemia: Qualifiers: Anemia type: other cause Other causes of anemia: other cause, not classified Qualified Code(s): D64.89 - Other specified anemias Plan Budesonide 1 mg INH BID Pantoprazole Sodium 40 mg PO DAILY Albuterol Sulfate 3 ml INH Q4H Levofloxacin 750 mg PO Q24H Aspirin 325 mg PO DAILY stopped for thrombocytopenia Digoxin 250 mcg PO DAILY Duloxetine Hcl 30 mg PO BID Metoprolol Tartrate 25 mg PO BID Potassium Chloride 20 meq PO DAILY DuoNebs every 4 hours Solu-Medrol 125 IV every 8 hours stopped secondary to leukocytosis Tussionex 5 mL every 12 hours. Cough Tessalon 200 mg 1 p.o. every 8 hours as needed cough up out of bed at least 3 times today and move around Acetaminophen 500 mg PO Q6H PRN Docusate Sodium 100 mg PO DAILY PRN Magnesium Hydroxide 30 ml PO DAILY PRN Carbidopa/Levodopa 25/100 mg (1) each PO TID PRN Hydrocodone Bitart/Acetaminophen 5/325 mg (1) each PO Q8H PRN discharged held secondary to WBC just improved to 18 and increased bronchospasm today with mild respiratory distress anhd continued thrombocytopenia Fall Risk Details Pa Fall Scale Risk Level: Moderate Fall Risk Current Medications: Current Medications Acetaminophen (Acetaminophen 500 Mg Tablet) 500 mg PO Q6H PRN PRN Reason: MILD PAIN SCALE 1-4 Last Admin: 11/13/24 10:17 Dose: 500 mg Hydrocodone Bitart/Acetaminophen (Hydrocodone/Acetaminophen 5/325 Mg Tablet) 1 each PO Q8H PRN PRN Reason: SEVERE PAIN 8-10 Last Admin: 11/16/24 09:33 Dose: 1 each Albuterol Sulfate (Ipratropium/Albuterol Sulfate 3 Ml Ampul.Neb) 3 ml INH Q4H AJ Last Admin: 11/16/24 14:54 Dose: 3 ml Aspirin (Aspirin 325 Mg Tablet) 325 mg PO BID AJ Last Admin: 11/16/24 09:29 Dose: 325 mg Benzonatate (Benzonatate 100 Mg Capsule) 200 mg PO Q8H PRN PRN Reason: Cough Last Admin: 11/15/24 21:05 Dose: 200 mg Budesonide (Budesonide 0.5 Mg/2 Ml Ampul.Neb) 1 mg INH BID [facility] Last Admin: 11/16/24 08:08 Dose: 1 mg Carbidopa/Levodopa (Carbidopa/Levodopa 25/100 Tablet) 1 each PO TID PRN PRN Reason: muscle spasm Last Admin: 11/15/24 22:08 Dose: 1 each Chlorphenir/Hydrocodone Polistirex (Hydrocodone/Chlorphen P-Stirex 5 Ml Madhuri.Er.12h) 5 ml PO Q12H PRN PRN Reason: Cough Last Admin: 11/16/24 14:14 Dose: 5 ml Digoxin (Digoxin 125 Mcg Tablet) 250 mcg PO DAILY [facility] Last Admin: 11/16/24 09:29 Dose: 250 mcg Docusate Sodium (Docusate Sodium 100 Mg Capsule) 100 mg PO DAILY PRN PRN Reason: Constipation Duloxetine HCl (Duloxetine Hcl 30 Mg Capsule.Dr) 30 mg PO BID [facility] Last Admin: 11/16/24 09:29 Dose: 30 mg Levofloxacin (Levofloxacin 500 Mg Tablet) 750 mg PO Q24H [facility] Last Admin: 11/16/24 10:58 Dose: 750 mg Magnesium Hydroxide (Magnesium, Aluminum Hydroxide 30 Ml Oral.Susp) 30 ml PO DAILY PRN PRN Reason: gerd Metoprolol Tartrate (Metoprolol Tartrate 50 Mg Tablet) 25 mg PO BID [facility] Last Admin: 11/16/24 09:29 Dose: 25 mg Pantoprazole Sodium (Pantoprazole Sodium 40 Mg Tablet.Dr) 40 mg PO DAILY [facility] Last Admin: 11/16/24 09:28 Dose: 40 mg Potassium Chloride (Potassium Chloride 20 Meq Tab.Er.Prt) 20 meq PO DAILY [facility] Last Admin: 11/16/24 09:29 Dose: 20 meq Time Spent With Patient Time: Total time spent is greater than 50% in coordination of care (as documented) at patient's floor/unit and/or counseling patient: Time with patient: greater than 35 minutes
[2024-11-17 05:37] LABS: Basophils #(Absolute) Auto 0.1 (0.0-0.1); Basophils%(Percent) Auto 0.4 (0.0-1.3); Eosinophils#(Absolute)Auto 0.1 (0.0-0.3); Eosinophils%(Percent) Auto 0.5 % (0.0-4.0); Granulocytes % - Auto 25.5 % (49.1-73.1); Hematocrit 38.6 % (41.3-50.1); Mean Corpuscular Volume 94.9 fl (81.9-96.5); Monocytes #(Absolute)- Auto 0.5 (0.2-0.8); Monocytes %(Percent)- Auto 2.9 % (4.5-10.7); Platelet Count 91 K/uL (142-355); White Blood Count 15.5 K/uL (3.7-9.6)
[2024-11-17 06:17] LABS: Potassium 4.9 mmol/L (3.6-5.2)
[2024-11-17 08:12] VITALS: BP 134/65; PULSE 61; RESP 20; TEMP 97.8
[2024-11-17] MEDS ORDERED: IPRATROPIUM/ALBUTEROL SULFATE 3 ML AMPUL.NEB INH ONE (11:17)
--- NOTE | 2024-11-17 14:38 | Discharge Summary ---
DS: Providers Provider Date of admission: 11/12/24 17:31 Primary care physician: Yony Carvajal MD Admitting clinician: Cortney Jorge Attending physician on admission: Italia Cespedes Attending physician on discharge: Italia Cespedes Discharging clinician: Italia Cespedes Anticipated date of discharge: 11/17/24 DS: Diagnosis Discharge Diagnosis (1) COPD exacerbation: (2) Pneumonia allergic: (3) Chronic lymphocytic leukemia (CLL), clinical stage C: (4) A-fib: Qualifiers: Atrial fibrillation type: paroxysmal Qualified Code(s): I48.0 - Paroxysmal atrial fibrillation (5) Bronchospasm, acute: (6) Thrombocytopenia: (7) Hyperglycemia: (8) Chest pain: Qualifiers: Chest pain type: unspecified Qualified Code(s): R07.9 - Chest pain, unspecified (9) CHF (congestive heart failure): Qualifiers: Heart failure chronicity: unspecified Heart failure type: unspecified Qualified Code(s): I50.9 - Heart failure, unspecified (10) SOB (shortness of breath): (11) Leukocytosis: Qualifiers: Leukocytosis type: unspecified Qualified Code(s): D72.829 - Elevated white blood cell count, unspecified (12) Elevated d-dimer: (13) Hypoproteinemia: (14) Anemia: Qualifiers: Anemia type: other cause Other causes of anemia: other cause, not classified Qualified Code(s): D64.89 - Other specified anemias Plan Levofloxacin 750 mg PO Q24H Budesonide 1 mg INH BID Pantoprazole Sodium 40 mg PO DAILY Albuterol Sulfate 3 ml INH Q4H Digoxin 250 mcg PO DAILY Duloxetine Hcl 30 mg PO BID Metoprolol Tartrate 25 mg PO BID Potassium Chloride 20 meq PO DAILY Acetaminophen 500 mg PO Q6H PRN Docusate Sodium 100 mg PO DAILY PRN Magnesium Hydroxide 30 ml PO DAILY PRN Carbidopa/Levodopa 25/100 mg (1) each PO TID PRN Hydrocodone Bitart/Acetaminophen 5/325 mg (1) each PO Q8H PRN Chlorphenir/Hydrocodone Polistirex5 ml PO Q12H PRN Benzonatate 200 mg PO Q8H PRN Discharge home for self care. DS: Summary Hospital Course Hospital Course: This is a 74-year-old male patient that presents to the ER with c/o cough, congestion, fever, chills, SOB and chest tightness. Patient denies any abdominal pain, back pain, numbness, tingling, weakness or N/V. Admitted patient to med/surg for further observation and treatment. Day two of hospital stay, patient states that his breathing is better he just does not feel well cannot give me any specifics other than he did not rest well last p.m. and cough is worsening so his chest is sore, hurts to take deep breaths, and cough. Denies any fevers chills is able to take a bath with assistance and will try to get up out of bed several times a day. Day three of hospital stay, patient states that his breathing is better and he feels so much better. Cough still persisting although medications help and he has abdominal pain like sore with cough. Denies any fevers chills is able to take a bath with assistance and will try to get up out of bed several times a day. 3 BM's yesterday. Day four of hospital stay, patient states that his breathing is harder since this am and he is struggling to breath today. Cough still persisting although medications help and he has abdominal pain like sore with coughing continues today. Denies any fevers chills is able to take a bath with assistance and will try to get up out of bed several times a day. Day five of hospital stay, patient is ready to discharge home for self care at this time. Post hospital follow up appointment has been made with PCP within 5-7 days of discharge, or soon if needed. Status at Discharge Overall status at discharge: patient is back to baseline Time Spent with Patient Time attestation: Total time spent providing and/or coordinating discharge services: Exam Exam: Patient setting up in recliner chair, family member at couch. Constitutional: normal general appearance, no apparent distress, abnormal body habitus (overweight), limitations noted (physical limitations) and alert Vital Signs - 24 hr 11/16/24 12:00 11/16/24 16:00 11/16/24 20:00 Temperature 98.3 F 97.5 F L Pulse Rate [Brachi al] 72 77 Pulse Rate [Right Brachial] 77 Respiratory Rate 20 19 16 Blood Pressure [Le ft Arm] 120/57 111/59 142/60 Pulse Oximetry 93 L 90 L 96 Oxygen Delivery Me thod Nasal Cannula Room Air Nasal Cannula Oxygen Flow Rate 2 Fraction of Inspir ed Oxygen 11/16/24 20:00 11/16/24 20:24 11/16/24 20:24 Temperature 97.6 F Pulse Rate [Brachi al] 77 Pulse Rate [Right Brachial] Respiratory Rate 16 Blood Pressure [Le ft Arm] 142/60 Pulse Oximetry 96 92 L 92 L Oxygen Delivery Me thod Room Air Nasal Cannula Oxygen Flow Rate 2 Fraction of Inspir ed Oxygen 28 11/17/24 00:00 11/17/24 04:00 11/17/24 07:50 Temperature 97.5 F L 97.7 F Pulse Rate [Brachi al] 69 Pulse Rate [Right Brachial] 64 Respiratory Rate 16 16 Blood Pressure [Le ft Arm] 123/65 132/61 Pulse Oximetry 95 95 93 L Oxygen Delivery Me thod Room Air Nasal Can nula Room Air Oxygen Flow Rate Fraction of Inspir ed Oxygen 11/17/24 08:00 Temperature 97.8 F Pulse Rate [Brachi al] Pulse Rate [Right Brachial] 61 Respiratory Rate 20 Blood Pressure [Le ft Arm] 134/65 Pulse Oximetry 95 Oxygen Delivery Me thod Nasal Cannula Oxygen Flow Rate 2 Fraction of Inspir ed Oxygen HENMT: normocephalic, head/scalp atraumatic, hearing grossly normal bilaterally, external ears normal, nasal mucous membranes normal, external nose normal, oral mucous membranes normal and oropharynx normal Eyes: PERRL, EOMs intact bilaterally, conjunctivae normal, no scleral icterus, papilledema noted and periorbital findings normal Neck/C-Spine: visual inspection normal, trachea midline, cervical spine nontender, abnormal cervical ROM noted, supple, no meningeal signs, thyroid normal and no carotid bruits Lymph: no lymphadenopathy noted and no lymphedema noted Chest: inspection of chest normal and palpation of chest normal Respiratory: breath sounds equal bilaterally, normal respiratory effort, auscultation abnormal (diminished breath sound), wheezing noted (scattered wheezes), no rales, no retractions, use of accessory muscles noted and chest percussion normal Cardiovascular: normal heart rate noted, rhythm abnormal (irregular), no gallop, no rub, no murmur, no JVD, no clicks, peripheral pulses 2+ throughout, no bruits noted and no additional abnormal heart sounds Gastrointestinal: abdomen normal to inspection, abdomen soft to palpation, tender to palpation (with palpation or cough rates at a 6 and improves without palpation or coug) (moderate), nontender to percussion, nondistended, normoactive bowel sounds, hepatosplenomegaly noted, no masses, no pulsatile mass, no ascites and no hernia Genitourinary: no CVA tenderness and bladder normal to palpation Back/Pelvis: spine abnormal to inspection (increased thoracic kyphosis), no thoracic spine tenderness, no lumbar spine tenderness, thoracic spine ROM abnormal, no paraspinal muscle tenderness noted and straight leg raise negative bilaterally Extremities: normal to inspection, normal to palpation, no tenderness, full ROM, no joint enlargement and no deformity 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, no movement abnormality noted, no focal motor deficit noted, sensory deficit noted, deep tendon reflexes 2+ bilaterally, gait abnormality noted (antalgic), speech normal, coordination normal, no pronator drift noted, no fasciculations noted and GCS normal Psychiatry: Mental Status Exam documented within this Exam's Psych section mental status grossly normal, oriented x3, thought process normal, cooperative, affect abnormality noted (flat), psychomotor activity normal and memory normal Skin: skin color normal, no rash, no lesions, ecchymosis noted, no wounds, no lacerations, skin turgor abnormal, no jaundice, no petechiae, no mottling, nails abnormality noted and no alopecia DS: Data Data Completed and Pending Labs on day of discharge: Labs from last 24 hours 11/17/24 05:20 WBC 15.5 H RBC 4.1 L Hgb 13.2 L Hct 38.6 L MCV 94.9 MCH 32.3 MCHC 34.1 RDW 15.0 H Plt Count 91 L MPV 6.5 Gran % 25.5 L Lymph % (Auto) 70.7 H [place] % (Auto) 2.9 L Eos % (Auto) 0.5 Baso % (Auto) 0.4 Lymph # (Auto) 10.9 H [place] # (Auto) 0.5 Eos # (Auto) 0.1 Baso # (Auto) 0.1 Absolute Gran (auto) 4.0 Sodium 140 Potassium 4.9 Chloride 105.0 Carbon Dioxide 33 H Anion Gap 2.0 L BUN 22 H Creatinine 1.3 Estimated GFR 58.4 Glucose 102 Calcium 8.2 L Phosphorus 3.4 Magnesium 2.3 Total Bilirubin 0.45 AST 14 L ALT 13 L Alkaline Phosphatase 47 L Total Protein 5.3 L Albumin 3.0 L Imaging Chest x-ray: Radiologist's impression: CHEST Date of Service: 11/12/24 HISTORY: painpain; COMPARISON: March 31, 2024. TECHNIQUE: Frontal view of the chest was submitted for interpretation. FINDINGS: The cardiomediastinal silhouette is again seen to be enlarged. Lungs show mild pulmonary edema. IMPRESSION: Stable cardiomegaly with mild pulmonary edema. CHEST Date of Service: 11/13/24 HISTORY: SOBSOB; COMPARISON: November 12, 2024. TECHNIQUE: Frontal view of the chest was submitted for interpretation. FINDINGS: The cardiomediastinal silhouette is stable in size. Lungs show stable patchy airspace disease in the lung bases. IMPRESSION: Stable patchy airspace disease in the lung bases. Chest PA and lateral views Date of Service: 11/14/24 HISTORY: Pneumonia COPD COMPARISON: 11/13/2024, 03/31/2024 FINDINGS: Similar and stable extent and distribution of bilateral pulmonary densities and blunting of right costophrenic angle. Heart size unchanged. IMPRESSION: The described pulmonary and pleural findings are likely chronic scarring and exhibit no significant change since 2023, and described on recent CT imaging. A superimposed inflammatory or congestive process can not be confidently excluded. There is no new abnormality since previous exam. CT scan - chest: Radiologist's impression: CT CHEST WO CON Date of Service: 11/12/24 HISTORY: Shortness of breath. Assess for mass. COMPARISON: Chest radiograph from November 12, 2024 and CTA chest from March 31, 2024 TECHNIQUE: Axial non-contrast images of the chest with coronal and sagittal reformats. Radiation dose: 381.7 mGy-cm total DLP FINDINGS: No pericardial effusion. Coronary artery calcifications. Cardiac chambers are moderately enlarged. Aorta and pulmonary arteries are normal in caliber. Numerous slightly enlarged hilar and mediastinal lymph nodes; without significant change. Thyroid appears normal. Central airways are widely patent. Esophagus appears normal. Pleural thickening and calcifications along the posterior margins of both lungs. No effusion, focal consolidation or pneumothorax. No focal concerning lung parenchymal lesion identified. Scarring in the posterior left lung base and in the middle lobe; as seen on the previous exam. No acute osseous abnormality. IMPRESSION: 1. No acute intrathoracic abnormality identified. No significant changes in the appearance of the lung parenchyma/scarring when compared to the previous exam. 2. Numerous slightly enlarged hilar and mediastinal lymph nodes; without significant change when compared to the CT from March 31, 2024. Discharge Plan Discharge Disposition: Home, Self-Care Condition: Improved Discharge Medications: New budesonide-formoterol [Symbicort] 160-4.5 mcg/actuation HFA aerosol inhaler 2 puff inhalation Q12H Qty: 10.2 0RF Continued carbidopa-levodopa 25-100 mg tablet 1 tab PO TID PRN (Reason: muscle spasm) Patient Comments: TAKE ONE TABLET BY MOUTH THREE TIMES DAILY NEEDED FOR 90 DAYS aspirin [Ralf Aspirin] 325 mg tablet 325 mg PO BID digoxin 250 mcg (0.25 mg) tablet 0.25 mg PO DAILY Patient Comments: TAKE ONE TABLET BY MOUTH DAILY AT 9AM FOR 90 DAYS duloxetine 30 mg capsule,delayed release(DR/EC) 30 mg PO BID Patient Comments: TAKE ONE CAPSULE BY MOUTH TWICE DAILY furosemide 40 mg tablet 40 mg PO DAILY Patient Comments: TAKE ONE TABLET BY MOUTH DAILY hydrocodone-acetaminophen 5-325 mg tablet 1 tab PO Q8H PRN (Reason: pain) Patient Comments: TAKE ONE TABLET BY MOUTH EVERY 8 HOURS NEEDED metoprolol tartrate 50 mg tablet 25 mg PO BID Patient Comments: TAKE ONE TABLET BY MOUTH TWICE DAILY Rx Instructions: PATIENT'S EXPLAINED THAT THEY WERE INSTRUCTED TO FOLLOW THE PATIENT'S HEART RATE AND BLOOD PRESSURE ON HOW THE DOSE IS GIVEN. HE IS TO GET 1/2 TAB WHEN THE DBP IS 60 -89, 90 AND ABOVE A WHOLE TABLET IS ADMINISTERED. IF THE DBP IS LESS THAN 60 EITHER THE DOSE IS OMITTED OR GIVEN PER INSTRUCTED LATER IN THE DAY. potassium chloride 20 mEq tablet extended release 20 meq PO DAILY Patient Comments: TAKE ONE TABLET BY MOUTH DAILY AT 9AM WITH FOOD FOR 90 DAYS Discharge Orders: Discharge Order (Routine); Ordered 11/17/24 Ordered By: Italia Cespedes Activity: increase activity as tolerated Diet: advance to your usual diet Interventions: Discharge Assessment Last Done: 11/17/24 11:12 MED/SURG & ICU Observation Charge Sheet Last Done: 11/17/24 11:13 Patient Instructions: COPD (Chronic Obstructive Pulmonary Disease) (DC) Activity Restrictions/Additional Instructions: Follow-up Dr Yony Carvajal in 2 to 3 days. After extensive conversation with Dr. Bhakta about taking aspirin twice a day with the thrombocytopenia he discussed with the patient has a history of CLL has been in remission for quite some time and he and the maltster have agreed upon the aspirin as long as his platelets are stable in the 90s or better he feels comfortable with the patient staying on the aspirin twice a day since he refuses Eliquis secondary to cost and other concerns. Patient to follow-up with cardiology and hematology as soon as possible Continue to wear his oxygen at home as tolerated Forms: Portal/[facility] Follow-Ups: Yony Carvajal MD [Primary Care Provider] - 11/18/24 10:00 am Discharge Date/Time: 11/17/24 11:15
== END 2024-11-17 11:15 | disposition home or self-care (01) | DRG 191 ==
LOC: ED 15:20 → MS 15:20 → OBSVTOIN 17:31 → MS 20:55
PROVIDERS: ADMIT Family Medicine; ATTEND Family Medicine
DX: I50.9 Heart failure, unspecified; J82.89 Other pulmonary eosinophilia, not elsewhere classified; I48.0 Paroxysmal atrial fibrillation; D69.6 Thrombocytopenia, unspecified; J44.1 Chronic obstructive pulmonary disease with (acute) exacerbation; C91.11 Chronic lymphocytic leukemia of B-cell type in remission; R73.9 Hyperglycemia, unspecified; R79.89 Other specified abnormal findings of blood chemistry; E77.8 Other disorders of glycoprotein metabolism; Z79.82 Long term (current) use of aspirin; J98.01 Acute bronchospasm; F17.210 Nicotine dependence, cigarettes, uncomplicated; I11.0 Hypertensive heart disease with heart failure; D64.89 Other specified anemias